=== PATIENT | male | born 2000 | race Two or more races ===

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

== ENCOUNTER 2019-11-05 15:29 | Emergency (ER) | payer SELFPAY ==
[~2019-11-05] VITALS: Ht 170.2 cm; Wt 59.0 kg
[2019-11-05] MEDS ORDERED: LIDOCAINE 1% HCL (LOCAL ANESTH.) INJ 20ML MDV ONE (16:43)
[2019-11-05] MEDS ORDERED: TETANUS-DIPTH-ACEL PERTUSSIS 0.5ML SYRG IM ONE (16:45)
[2019-11-05] MEDS ORDERED: LIDOCAINE 1% HCL (LOCAL ANESTH.) INJ 20ML MDV IJ ONE ×2 (16:45)
[2019-11-05] MEDS ORDERED: IBUPROFEN 800 MG TAB PO ONE (17:15)
[2019-11-05] MEDS ORDERED: cefTRIAXone SOD 1,000 MG VL ONE (17:58)
[2019-11-05] MEDS ORDERED: cefTRIAXone W LIDOCAINE 1 GM IM IM ONE (18:00)
[2019-11-05 18:03] VITALS: BP 118/85
== END 2019-11-05 18:02 | disposition home or self-care (01) ==
LOC: ER 15:29
DX: S02.85XA Fracture of orbit, unspecified, initial encounter for closed fracture (principal); S00.83XA Contusion of other part of head, initial encounter; F12.10 Cannabis abuse, uncomplicated; Y08.89XA Assault by other specified means, initial encounter; Y93.89 Activity, other specified; Y99.8 Other external cause status; Y92.89 Other specified places as the place of occurrence of the external cause
CPT/HCPCS: 70450; 70486; 90471; 90715; 96372; 99285; J0696; J2001